=== PATIENT | male | born 1945 | race Caucasian/White ===

== ENCOUNTER 2018-09-06 06:08 | Inpatient (IN) ==
--- NOTE | 2018-09-06 06:48 | ED ---
HPI General Chief Complaint: Weakness Stated Complaint: numbness rt arm Time Seen by Provider: 09/06/18 07:08 Source: patient Mode of arrival: ambulatory Limitations: no limitations History of Present Illness HPI Narrative: 73-year-old male presents to the emergency department by private transportation for evaluation of numbness tingling and mild weakness of the right upper extremity. Patient is right-handed. Patient states he went to bed last evening at 11 PM feeling normal with no symptoms and awakened at 5 AM to go to the bathroom and was aware he already had numbness tingling in the. Patient states that he has experienced this before so waited to see if symptoms resolve but because it persisted he decided to come to the emergency room for evaluation. Patient denies headache visual disturbance loss of vision double vision difficulty with speech swallowing has not noticed a facial droop and appearing in a mirror has had no chest pain shortness of breath nausea vomiting palpitations no upper extremity or lower extremity numbness tingling or weakness other than previously mentioned affecting the isolated right upper extremity. No ataxia. Patient denies any neck pain referred neck pain to the right upper extremity no prior history of radiculopathy. Patient is unable to identify exacerbating or alleviating factors. Patient has history of hypertension dyslipidemia and previous TIA's. Patient states original event with TIA versus stroke occurred approximately 5 years ago which at which time he had complete left-sided weakness was transported by EMS to the hospital and while in route received an injection of the medication and by the time he arrived to the emergency department is noting improvement of symptoms and was discharged after hospitalization with no residual. During his hospitalization he was evaluated with a SALVADOR and is felt that he had some small defects in the septum and was placed on Plavix. Patient has been on Plavix for 5 years. Patient states as recently as 1 month ago he had a similar episode as this morning with tingling and weakness and numbness affecting the right upper extremity that resolved spontaneously after 2 hours. Patient thinks his symptoms are slightly improved but is not certain and presents now for further evaluation. Onset (ago): unknown (went to bed at 11pm awakened with symptoms 5 am) Time: 05:00 Last Observed Normal: 06:41 Timing confirmed by: other (patient) Location: Reports right arm History of same: Yes Severity: mild Quality: Reports weak, numb and tingling Relieving factors: none Exacerbating factors: none Context: Reports other (unknown ---during sleep) On Anticoagulants: Yes (plavix) Associated symptoms: Denies confusion, chest pain, cough, diaphoresis, fever/ chills, headaches, loss of appetite, malaise, nausea/vomiting, vertigo, seizures , shortness of breath, syncope and weakness Treatments Prior to Arrival: Reports none Related Data Home Medications Medication Instructions Recorded Confirmed clopidogrel [Plavix] 75 mg PO DAILY 09/06/18 09/06/18 lisinopril 5 mg PO DAILY 09/06/18 09/06/18 simvastatin [Zocor] 20 mg PO QPM 09/06/18 09/06/18 Allergies Allergy/AdvReac Type Severity Reaction Status Date / Time meperidine AdvReac Intermediate Nauseous Verified 09/06/18 06:24 Review of Systems ROS: all other systems reviewed are negative [facility] Medical History Medical History History of TIAs (Acute) History of high cholesterol (Acute) History of hypertension (Acute) Social History Social History Substance History: No History of Abuse Smoking Status: Former smoker How Often Do You Have a Drink Containing Alcohol: Monthly or less Recent Travel in [facility] within the Last 8 Weeks: No Recent Out of Country Travel within the Last 8 Weeks: No Immunization History Tetanus Immunization: Unsure Exam Narrative Exam Narrative: GENERAL: Well-developed well-nourished male in no acute distress no respiratory distress GCS 15 SKIN: Focused skin assessment warm/dry. HEAD: Atraumatic. Normocephalic. EYES: Pupils equal and round. No scleral icterus. No injection or drainage. ENT: No nasal bleeding or discharge. Mucous membranes pink and moist. NECK: Trachea midline. No JVD. CARDIOVASCULAR: Regular rate and rhythm. No murmur appreciated. RESPIRATORY: No accessory muscle use. Clear to auscultation. Breath sounds equal bilaterally. GASTROINTESTINAL: Abdomen soft, non-tender, nondistended. Hepatic and splenic margins not palpable. MUSCULOSKELETAL: No obvious deformities. No clubbing. No cyanosis. No edema. NEUROLOGICAL: Awake and alert. No obvious cranial nerve deficits. Motor grossly within normal limits. Normal speech. PSYCHIATRIC: Appropriate mood and affect; insight and judgment normal. Course Consultations Consultation #1: dr staton agrees to aspirin and admit for further workup Consultation #2: dr cho agrees to admit Initial Documented Vital Signs Temperature 97.9 F 09/06/18 06:13 Pulse Rate 69 09/06/18 06:13 Respiratory Rate 18 09/06/18 06:13 Blood Pressure 135/66 09/06/18 06:13 Pulse Oximetry 98 09/06/18 06:13 Last Documented Vital Signs Temperature 97.9 F 09/06/18 06:13 Pulse Rate 82 09/06/18 06:39 Respiratory Rate 16 09/06/18 06:39 Blood Pressure 144/75 H 09/06/18 06:39 Pulse Oximetry 99 09/06/18 06:39 Sign Out Sign Out Data: Patient Sign Out occurred on 09/06/18 at 07:27. Patient's care was discussed, and care was transferred from Corinna Valladares MD to Isi Medeiros MD. Sign Out Comment: 73-year-old male here for evaluation of possible TIA CT labs pending may require MRI before disposition; currently on Plavix; NIH SS 0; care signed over to Dr. Medeiros Last updated by Corinna Valladares MD at 09/06/18 07:09 Post-Handoff Eval: Signed over to me to follow labs and CT and reevaluate. CT brain is normal. Patient states he feels like he is still weak in his right hand and having numbness. With history of TIA he will need to be admitted for further workup. He will be given aspirin after discussion with neurologist. Patient agrees to this plan of care NIH Stroke Scale NIH Stroke Scale Level of Consciousness: 0-Alert Orientation Questions: 0-Answers both correct Responds to Commands: 0-Both tasks correct Gaze Eye Movement: 0-Horizontal movement WNL Visual Hung: 0-No visual field defect Facial Movement: 0-Normal Motor Functions Arm LEFT: 0-No drift Motor Functions Arm RIGHT: 0-No drift Motor Functions Leg LEFT: 0-No drift Motor Functions Leg RIGHT: 0-No drift Limb Ataxia: 0-No ataxia Sensory Loss: 0-No sensory loss Best Language: 0-Normal Articulation: 0-Normal Extinction or Inattention Sensory: 0-Absent Total: 0 Medical Decision Making MDM Narrative Medical decision making narrative: 73-year-old male presents to the emergency department for complaint of mild numbness and tingling and weakness of the right upper extremity noted present upon awakening at 5 AM persistent presents now for evaluation; neurologic exam normal NIH stroke score 0. CT brain noncontrast ordered along with EKG salvage grinder lab work Medical Screen Exam Complete: Yes Emergency Medical Condition: Yes Differential Diagnosis Differential Diagnosis: TIA, CVA, cervical radiculopathy, brachioplexopathy, radial nerve palsy; no findings for limb ischemia Medical Records Medical records reviewed: Yes I reviewed the patient's medical records. Lab Data Result diagrams: 09/06/18 06:25 09/06/18 06:25 Lab Results 09/06/18 09/06/18 09/06/18 Range/Units 06:25 06:25 06:25 CBC w Diff Auto diff final WBC 4.6 (4.0-11.0) th/mm3 RBC 5.26 (4.50-5.90) mil/mm3 Hgb 16.4 (13.0-17.0) gm/dL Hct 50.3 (39.0-51.0) % MCV 95.5 (80.0-100.0) fL MCH 31.2 (27.0-34.0) pg MCHC 32.7 (32.0-36.0) % RDW 12.1 (11.6-17.2) % Plt Count 173 (150-450) th/mm3 MPV 9.4 (7.0-11.0) fL Neut % (Auto) 57.2 (16.0-70.0) % Lymph % (Auto) 26.3 (9.0-44.0) % Whitman % (Auto) 13.2 H (0.0-8.0) % Eos % (Auto) 2.7 (0.0-4.0) % Baso % (Auto) 0.6 (0.0-2.0) % Neut # (Auto) 2.7 (1.8-7.7) th/mm3 Lymph # (Auto) 1.2 (1.0-4.8) th/mm3 Whitman # (Auto) 0.6 (0.0-0.9) th/mm3 Eos # (Auto) 0.1 (0.0-0.4) th/mm3 Baso # (Auto) 0.0 (0.0-0.2) th/mm3 WBC Differential . Differential Comment . PT 10.5 (9.8-11.6) sec INR 1.0 Ratio APTT 26.8 (23.4-31.7) sec Sodium 142 (136-145) meq/L Potassium 3.6 (3.5-5.1) meq/L Chloride 108 H (98-107) meq/L Carbon Dioxide 25.9 (21.0-32.0) meq/L Anion Gap 8 (5-15) meq/L BUN 25 H (7-18) mg/dL Creatinine 1.20 (0.60-1.30) mg/dL Estimated GFR 60 L (>89) mL/min Random Glucose 98 (74-106) mg/dL Calcium 8.3 L (8.5-10.1) mg/dL Troponin I Less than 0.02 L (0.02-0.05) ng/mL Imaging Data Radiologist's impression: Head CT 09/06/18 06:38 CONCLUSION: Negative for acute process.. Discharge Plan Discharge Disposition Patient Disposition: 30 Still Patient Discharge Details Diagnosis: Right arm weakness, Numbness and tingling of right arm Physicians Team ED Provider: Isi Medeiros Primary Care Provider: Primary Care Albina Hinojosa Rxs /Orders / Referrals /Forms Prescriptions: No Action clopidogrel [Plavix] 75 mg Tablet 75 mg PO DAILY RF: 0 simvastatin [Zocor] 20 mg Tablet 20 mg PO QPM RF: 0 lisinopril 5 mg Tablet 5 mg PO DAILY RF: 0 Discharge Interventions Interventions: Vital Signs Last Done: 09/06/18 06:39 Status ED Status: Admitted Observation Patient
[2018-09-06 06:50] LABS: Baso % (Auto) 0.6 % (0.0-2.0); Eos # (Auto) 0.1 th/mm3 (0.0-0.4); Eos % (Auto) 2.7 % (0.0-4.0); Hematocrit 50.3 % (39.0-51.0); Hemoglobin 16.4 gm/dL (13.0-17.0); Lymph # (Auto) 1.2 th/mm3 (1.0-4.8); Lymph % (Auto) 26.3 % (9.0-44.0); Mean Corpuscular HGB Conc 32.7 % (32.0-36.0); Mean Corpuscular Hemoglobin 31.2 pg (27.0-34.0); Mean Corpuscular Volume 95.5 fL (80.0-100.0); Mean Platelet Volume 9.4 fL (7.0-11.0); Mono # (Auto) 0.6 th/mm3 (0.0-0.9); Mono % (Auto) 13.2 % (0.0-8.0); Neut # (Auto) 2.7 th/mm3 (1.8-7.7); Neut % (Auto) 57.2 % (16.0-70.0); Platelet Count 173 th/mm3 (150-450); Red Blood Count 5.26 mil/mm3 (4.50-5.90); Red Cell Distribution Width 12.1 % (11.6-17.2); White Blood Count 4.6 th/mm3 (4.0-11.0)
[2018-09-06 07:16] LABS: Chloride 108 meq/L (98-107); Potassium 3.6 meq/L (3.5-5.1); Sodium 142 meq/L (136-145)
[2018-09-06 07:18] LABS: Anion Gap 8 meq/L (5-15); Calcium 8.3 mg/dL (8.5-10.1); Carbon Dioxide 25.9 meq/L (21.0-32.0); Glucose,Random 98 mg/dL (74-106)
[2018-09-06 07:19] LABS: Blood Urea Nitrogen 25 mg/dL (7-18)
[2018-09-06 07:22] LABS: Glomerular Filtration Rate 60 mL/min (>89)
[2018-09-06 07:29] LABS: Activated Partial Thrombo Time 26.8 sec (23.4-31.7); Prothrombin Time 10.5 sec (9.8-11.6)
--- NOTE | 2018-09-06 07:40 | CT ---
EXAM DATE: 09/06/2018 7:00 AM EDT AGE/SEX: 73 years / Male INDICATIONS: Numbness in right arm. CLINICAL DATA: This is the patient's initial encounter. Patient reports that signs and symptoms have been present for 1 day and indicates a pain score of 0/10. MEDICAL/SURGICAL HISTORY: . High cholesterol. Hypertension. Transient ischemic attacks. . RADIATION DOSE: 55.72 CTDI (mGy) COMPARISON: . TECHNIQUE: CT of the head without contrast. Using automated exposure control and adjustment of the mA and/or kV according to patient size, radiation dose was kept as low as reasonably achievable to ob tain optimal diagnostic quality images. DICOM format image data is available electronically for revi ew and comparison. FINDINGS: Cerebrum: The ventricles are normal for age. No evidence of midline shift, mass lesion, hemorrhage or acute infarction. No extraaxial fluid collections are seen. Posterior Fossa: The cerebellum and brainstem are intact. The 4th ventricle is midline. The cerebe llopontine angle is unremarkable. Moderate vertebral artery calcifications Extracranial: The visualized portion of the orbits is intact. Skull: The calvaria is intact. No evidence of skull fracture. CONCLUSION: Negative for acute process.. Electronically signed by: Huy Bullock MD 09/06/2018 7:39 AM EDT
[2018-09-06] MEDS ORDERED: Aspirin 325 MG Tablet PO ONE (07:54)
[2018-09-06] MEDS ORDERED: Dextrose 50% in Water 50 ML Vial IV.PUSH PRN (08:14)
[2018-09-06] MEDS ORDERED: Acetaminophen 325 MG Tablet PO PRN (08:18)
[2018-09-06] MEDS ORDERED: Bisacodyl 10 MG Supp RECTAL PRN (08:18)
[2018-09-06] MEDS: Sod Chloride 0.9% Inj 1,000 ML IV.CONT SCH (08:57)
[2018-09-06] MEDS ORDERED: Aspirin 325 MG Tablet PO SCH (09:00)
--- NOTE | 2018-09-06 09:45 | MR ---
EXAM DATE: 09/06/2018 9:40 AM EDT AGE/SEX: 73 years / Male INDICATIONS: . Right upper extremity numbness. CLINICAL DATA: This is the patient's initial encounter. Patient reports that signs and symptoms have been present for 1 day and indicates a pain score of 0/10. MEDICAL/SURGICAL HISTORY: Hypertension. Hypercholesterolemia. Inguinal hernia repair. Bilatera l knee. COMPARISON: [facility], MR HEAD W/O CONTRAST, 09/06/2018. . TECHNIQUE: 3D [id number] MRA was performed. Source images, multiplanar STS MIP, and 3D volum e MIP reconstructions were reviewed. FINDINGS: Anterior Circulation: Intracranial Carotid Arteries: Patent. JERROD: There is no evidence for aneurysm, vessel truncation or stenosis, and no evidence for vascular m alformation. MCA: There is no evidence for aneurysm, vessel truncation or stenosis, and no evidence for vascular m alformation. Posterior Circulation: Distal Vertebral Arteries: Distal Vertebral arteries are symetrical and patent. Basilar Artery: There is no evidence for aneurysm, vessel truncation or stenosis, and no evidence for vascular malformation. LEGISLATIVE ASSISTANT and Cerebellar Branches: There is no evidence for aneurysm, vessel truncation or stenosis, and no evidence for vascular malformation. CONCLUSION: 1. Unremarkable MRA examination of the [place]. Specifically, no evidence for large vessel occlusion. Electronically signed by: Irwin Romeo MD 09/06/2018 9:43 AM EDT
--- NOTE | 2018-09-06 09:53 | MR ---
EXAM DATE: 09/06/2018 9:40 AM EDT AGE/SEX: 73 years / Male INDICATIONS: . Right upper extremity numbness. CLINICAL DATA: This is the patient's initial encounter. Patient reports that signs and symptoms have been present for 1 day and indicates a pain score of 0/10. MEDICAL/SURGICAL HISTORY: Hypertension. Hypercholesterolemia. Inguinal hernia repair. Bilatera l knee. COMPARISON: [facility], MRA HEAD W/O CONTRAST, 09/06/2018. . TECHNIQUE: Multiplanar, multisequence examination of the brain was performed without contrast. FINDINGS: Cerebrum: The ventricles are normal for age. No evidence of midline shift, mass lesion, hemorrhage or acute infarction. No extraaxial fluid collections are seen. The pituitary gland and suprasellar cistern are normal in configuration. White Matter: Mild periventricular and deep focal T2 white matter prolongation. Posterior Fossa: The cerebellum and brainstem are intact. The 4th ventricle is midline. The cerebel lopontine angle is unremarkable. The cerebellar tonsils are normal in position. Diffusion Imaging: There are scattered regions of focal restricted diffusion in the left frontal lob e mid to high convexities with the largest region near the vertex.. Extracranial: The visualized portions of the orbits and paranasal sinuses are unremarkable. CONCLUSION: 1. 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 2. Senescent changes with mild periventricular ischemic white matter demyelination. Electronically signed by: Irwin Romeo MD 09/06/2018 9:51 AM EDT
[2018-09-06] MEDS: Senna/Docusate Sodium 8.6/50 MG Tablet PO SCH ×2 (10:28→20:44)
[2018-09-06 12:37] LABS: Magnesium 2.2 mg/dL (1.5-2.5)
--- NOTE | 2018-09-06 12:51 | MB ---
cc: Roula Mathew MD DATE: 09/06/2018 REASON FOR CONSULTATION: Possible stroke. HISTORY OF PRESENT ILLNESS: This is a pleasant 73-year-old man who comes in by his own vehicle with numbness, tingling on the right side, mostly upper extremity with mild weakness. He went to bed at 11:00 last night normal and woke up about 5 a.m. to go to the bathroom and his symptoms started, so really time of onset is not known; could be anywhere from 11 p.m. to 5 a.m. and he was not called a stroke alert nor TPA offered. He had symptoms like this for a number of years ago when he was in [place]; whether it was a true stroke or TIA, I think it was a stroke the way he explains that there were abnormalities on MRI. He had an extensive evaluation; neurology as well as cardiology and had what he describes as a transesophageal echo that showed some abnormalities. He states there were some bubbles thinking a PFO. However, because of the size, it was not repaired he tells me and they decided to put him on Plavix. He has been taking the Plavix and has had no issues, but about a month ago, he had similar symptoms and that resolved after 2 hours, but he did go not to the hospital. I believe he states he was out of town. He denies currently significant weakness, but still feels numbness below the elbow to his hands on the right. He states his handwriting or signing is almost back to normal. No leg issues. No speech issues. No headache, chest pain or shortness of breath. He has a history of hyperlipidemia, hypertension, TIA. SOCIAL HISTORY: Ex-smoker. Drinks rarely. No drugs. HOME MEDICINES: He states he takes Plavix; refer to his MAR. PHYSICAL EXAMINATION: VITAL SIGNS: Temperature 97.9, pulse 64, respiratory rate 16, blood pressure 117/69, saturating at 99% on room air. NECK: Supple. I do not appreciate any bruits. HEART: Regular. NEUROLOGIC: She is awake and alert. He is fluent. His pupils reactive. Visual chopra are full. Face symmetrical. Tongue midline. 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 He does have a little bit of decreased light touch from mid arm down to the fingers on the right. There is no obvious drift, no leg lag. DTRs are 1+. Cerebellar, as stated before, is normal. He is not clumsy on the right side. in the legs are normal. His gait is withheld until assessed by PT. LABORATORY DATA: His labs are reviewed. His GFR greater than 60, calcium 8.3. Hemoglobin A1c and lipids are pending. Coag panel was normal. CBC is really unremarkable. IMAGIN. Reports [place] MRA was unremarkable for any large vessel occlusion. 2. MRI did show focal regions of acute infarct, left frontal lobe mid to high convexities consistent with what looks like embolic. There is also periventricular white matter disease, age-related changes. DIAGNOSTIC DATA: He also had an EKG. I do not have the official report, but it looks like overall it is a sinus rhythm. 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 Doubt at this point aspirin and/or Plavix would be sufficient, given that he did have a complete stroke and did not resolve; MRI findings suggesting an embolic phenomenon. Would recommend starting the patient on anticoagulation. If he does not wish warfarin, an option would be Eliquis 5 mg b.i.d. I would also have cardiology see him; either they can evaluate him initially and the patient may be repeat a transesophageal echo or do a bubble study. We do not have the reports from 5 years ago from [place] in any case, at this time. Have PT, OT, and speech therapy assess him; start him on a diet; accordingly, lipids and hemoglobin A1c levels are pending and if he is doing well and cannot and can take his anticoagulation, certainly, he can be discharged home with followup with neurology as outpatient as well as with his primary care doctor. MD SAKINA Doss/db/justin , 11:21 AM , 11:31 AM
--- NOTE | 2018-09-06 13:11 | P.HP ---
History of Present Illness Primary Care Physician: No Primary Care Physician Chief Complaint: Right upper extremity numbness and weakness History of Present Illness: This is a 73-year-old male with a history of hypertension, hyperlipidemia and previous TIAs. 5 years ago he had left-sided weakness and underwent SALVADOR which showed small defect in the septum and was placed on Plavix. He has been doing well until early this morning when he felt numb and tingling in the right forearm with weakness. Symptoms persisted prompting ER consultation. Denies fever, chills, headache, dizziness, visual changes, slurred speech, neck pain, chest pain and shortness of breath. Patient reports he had similar episode a month ago that lasted for 2 hours with complete resolution. Patient was given aspirin in the emergency room and underwent MRI which showed acute infarction in the left frontal lobe mid to high convexities most consistent with embolic infarcts. Discussed with neurology, patient will start Eliquis which patient agrees. Antiplatelets will be discontinued. SALVADOR with bubble study was also recommended and will be performed later today by cardiology. All other systems reviewed negative Review of Systems All other systems reviewed negative except as stated in HPI PMFSH - History History Provided By: Patient - Medical History Medical History: Medical History (Last Reviewed 09/06/18 @ 13:50 by Dionicio Geller MD) History of TIAs History of high cholesterol History of hypertension - Surgical History Surgical History: Surgical History (Last Updated 09/06/18 @ 13:51 by Dionicio Geller MD) History of arthroscopic knee surgery S/P hernia surgery - Family History Family History: Family History (Last Updated 09/06/18 @ 13:52 by Dionicio Geller MD) Other CVA (cerebral vascular accident) - Social History I have reviewed the patient's Social History: Yes - Tobacco History Second Hand Smoke Exposure: No Smoking Status: Never smoker - Alcohol History How Often Do You Have a Drink Containing Alcohol: Never - Substance Use History Substance History: No History of Abuse - Travel History Recent Travel in the [place] Within the Last 8 Weeks: No Recent Travel Out of the Country Within the Last 8 Weeks: No - Immunization History Tetanus Immunization: Unsure Medications and Allergies Active Medications: Active Medications Acetaminophen (Tylenol) 650 mg PO Q4H PRN PRN Reason: Temp > 100.4 Al Hydroxide/Mg Hydroxide (Milk Of Magnesia Liq) 30 ml PO Q12H PRN PRN Reason: Mild Constipation Apixaban (Eliquis) 5 mg PO BID [facility] Bisacodyl (Dulcolax Supp) 10 mg RECTAL DAILY PRN PRN Reason: SEVERE CONSITIPATION Dextrose (D50w Vial) 50 ml IV.PUSH UNSCH PRN PRN Reason: PER HYPOGLYCEMIA PROTOCOL Enalaprilat (Vasotec Inj) 1.25 mg IV.PUSH Q4H PRN PRN Reason: For SBP > 220 or DBP > 120 Glucagon (Glucagon Inj) 1 mg OTHER UNSCH PRN PRN Reason: for Hypoglycemia Protocol Sodium Chloride (Ns Inj) 1,000 mls @ 70 mls/hr IV.CONT .[id number] [facility] Last Admin: 09/06/18 08:57 Dose: 70 mls/hr Insulin Aspart (Novolog Insulin Correctional Sugar Inj) 0 unit SQ ACHS [facility]; Protocol Lactulose (Lactulose Liq) 30 ml PO DAILY PRN PRN Reason: SEVERE CONSITIPATION Ondansetron HCl (Zofran Inj) 4 mg IV.PUSH Q6H PRN PRN Reason: NAUSEA OR VOMITING Pravastatin Sodium (Pravachol) 40 mg PO QPM [facility] Senna/Docusate Sodium (Lizy-Colace) 1 tab PO BID [facility] Last Admin: 09/06/18 10:28 Dose: Not Given Sennosides (Senokot) 17.2 mg PO Q12H PRN PRN Reason: Moderate Constipation Sodium Chloride (Ns Flush) 2 ml IV.FLUSH BID [facility] Last Admin: 09/06/18 10:29 Dose: 2 ml Sodium Chloride (Ns Flush) 2 ml IV.FLUSH PRN PRN PRN Reason: FLUSH AFTER USING IV ACCESS Allergies Allergy/AdvReac Type Severity Reaction Status Date / Time meperidine AdvReac Intermediate Nauseous Verified 09/06/18 06:24 Home Medications Medication Instructions Recorded Confirmed Type clopidogrel [Plavix] 75 mg PO DAILY 09/06/18 09/06/18 History lisinopril 5 mg PO DAILY 09/06/18 09/06/18 History simvastatin [Zocor] 20 mg PO QPM 09/06/18 09/06/18 History Exam Vital signs: Vital Signs 09/06/18 06:13 09/06/18 06:39 09/06/18 07:15 Temperature 97.9 F Pulse Rate 69 82 64 Respiratory Rate 18 16 Blood Pressure 135/66 144/75 H Pulse Oximetry 98 99 09/06/18 08:21 Temperature Pulse Rate 64 Respiratory Rate 16 Blood Pressure 117/69 Pulse Oximetry 99 Intake & Output 09/05/18 09/06/18 09/06/18 18:59 06:59 18:59 Weight 80.2 kg Narrative: GENERAL: Well-developed, well-nourished in no distress SKIN: Warm and dry. HEAD: Atraumatic. Normocephalic. EYES: Pupils equal and round. No scleral icterus. No injection or drainage. ENT: No nasal bleeding or discharge. Mucous membranes pink and moist. NECK: Trachea midline. No JVD. CARDIOVASCULAR: Regular rate and rhythm. RESPIRATORY: No accessory muscle use. Clear to auscultation. Breath sounds equal bilaterally. GASTROINTESTINAL: Abdomen soft, non-tender, nondistended. MUSCULOSKELETAL: Extremities without clubbing, cyanosis, or edema. No obvious deformities. NEUROLOGICAL: Awake and alert. No obvious cranial nerve deficits. Motor grossly within normal limits. Five out of 5 muscle strength in the arms and legs. Normal speech. PSYCHIATRIC: Appropriate mood and affect; insight and judgment normal. Results - Labs CBC & Chem 7: 09/06/18 06:25 09/06/18 06:25 Labs: Laboratory Results - last 24 hr 09/06/18 09/06/18 09/06/18 06:25 06:25 06:25 CBC w Diff Auto diff final WBC 4.6 RBC 5.26 Hgb 16.4 Hct 50.3 MCV 95.5 MCH 31.2 MCHC 32.7 RDW 12.1 Plt Count 173 MPV 9.4 Neut % (Auto) 57.2 Lymph % (Auto) 26.3 [place] % (Auto) 13.2 H Eos % (Auto) 2.7 Baso % (Auto) 0.6 Neut # (Auto) 2.7 Lymph # (Auto) 1.2 [place] # (Auto) 0.6 Eos # (Auto) 0.1 Baso # (Auto) 0.0 WBC Differential . Differential Comment . PT 10.5 INR 1.0 APTT 26.8 Sodium 142 Potassium 3.6 Chloride 108 H Carbon Dioxide 25.9 Anion Gap 8 BUN 25 H Creatinine 1.20 Estimated GFR 60 L POC Glucose Random Glucose 98 Calcium 8.3 L Magnesium 2.2 Troponin I Less than 0.02 L 09/06/18 11:19 CBC w Diff WBC RBC Hgb Hct MCV MCH MCHC RDW Plt Count MPV Neut % (Auto) Lymph % (Auto) [place] % (Auto) Eos % (Auto) Baso % (Auto) Neut # (Auto) Lymph # (Auto) [place] # (Auto) Eos # (Auto) Baso # (Auto) WBC Differential Differential Comment PT INR APTT Sodium Potassium Chloride Carbon Dioxide Anion Gap BUN Creatinine Estimated GFR POC Glucose 82 Random Glucose Calcium Magnesium Troponin I - Imaging Impressions Head CT 09/06/18 06:38 CONCLUSION: Negative for acute process.. Head MRI 09/06/18 08:17 CONCLUSION: 1. Focal regions of acute infarction in the left frontal lobe mid to high convexities in a manner most consistent with embolic infarcts. 2. Senescent changes with mild periventricular ischemic white matter demyelination. Head MRA 09/06/18 08:17 CONCLUSION: 1. Unremarkable MRA examination of the [place] of [place]. Specifically, no evidence for large vessel occlusion. Caprini VTE Risk Assessment Caprini VTE Risk Assessment: Moderate/High Risk (score >= 2) Caprini Risk Assessment Model: Point Value = 1 Point Value = 2 Point Value = 3 Point Value = 5 Age 41-60 Minor surgery BMI > 25 kg/m2 Swollen legs Varicose veins or History of unexplained or recurrent spontaneous Oral contraceptives or hormone replacement Sepsis (< 1 month) Serious lung disease, including pneumonia (< 1 month) Abnormal pulmonary function Acute myocardial infarction Congestive heart failure (< 1 month) History of inflammatory bowel disease Medical patient at bed rest Age 61-74 Arthroscopic surgery Major open surgery (> 45 min) Laparoscopic surgery (> 45 min) Malignancy Confined to bed (> 72 hours) Immobilizing plaster cast Central venous access Age >= 75 History of VTE Family history of VTE Factor V Leiden Prothrombin [id number] Lupus anticoagulant Anticardiolipin antibodies Elevated serum homocysteine Heparin-induced thrombocytopenia Other congenital or acquired thrombophilia Stroke (< 1 month) Elective arthroplasty Hip, pelvis, or leg fracture Acute spinal cord injury (< 1 month) Prophylaxis Regimen: Total Risk Factor Score Risk Level Prophylaxis Regimen 0-1 Low Early ambulation 2 Moderate Order ONE of the following: *Sequential Compression Device (SCD) *Heparin 5000 units SQ BID 3-4 Higher Order ONE of the following medications: *Heparin 5000 units SQ TID *Enoxaparin/Lovenox 40 mg SQ daily (WT < 150 kg, CrCl > 30 mL/min) *Enoxaparin/Lovenox 30 mg SQ daily (WT < 150 kg, CrCl > 10-29 mL/min) *Enoxaparin/Lovenox 30 mg SQ BID (WT < 150 kg, CrCl > 30 mL/min) AND/OR *Sequential Compression Device (SCD) 5 or more Highest Order ONE of the following medications: *Heparin 5000 units SQ TID (Preferred with Epidurals) *Enoxaparin/Lovenox 40 mg SQ daily (WT < 150 kg, CrCl > 30 mL/min) *Enoxaparin/Lovenox 30 mg SQ daily (WT < 150 kg, CrCl > 10-29 mL/min) *Enoxaparin/Lovenox 30 mg SQ BID (WT < 150 kg, CrCl > 30 mL/min) AND *Sequential Compression Device (SCD) Assessment and Plan - Plan This is a 73-year-old male with a history of hypertension, hyperlipidemia and previous TIAs on Plavix. Presented to the emergency department with acute right upper extremity numbness and weakness. EKG independently reviewed by me with sinus rhythm. 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 Stroke workup and continue Eliquis discontinue antiplatelets. Patient will be transferred to the main hospital today for SALVADOR. Risk factor modification obtain lipid profile and A1c. Consult neurology, cardiology, PT, ST and OT. Discharge Planning: Discharge per neurology and cardiology
--- NOTE | 2018-09-06 13:30 | ECHRPT ---
Indication: CVA/TIA CONCLUSIONS The left ventricular systolic function is normal with an estimated ejection fraction in the range of 60-65%. Trace mitral valve regurgitation. There is trace tricuspid valve regurgitation. BP: 121 / 68 HR: Rhythm: MEASUREMENTS (Male / Female) Normal Values Technical Quality:Good 2D ECHO LV Diastolic Diameter PLAX 4.7 cm 4.2 - 5.9 / 3.9 - 5.3 cm LV Systolic Diameter PLAX 2.4 cm IVS Diastolic Thickness 1.1 cm 0.6 - 1.0 / 0.6 - 0.9 cm LVPW Diastolic Thickness 1.1 cm 0.6 - 1.0 / 0.6 - 0.9 cm LV Relative Wall Thickness 0.5 RV Internal Dim ED PLAX 3.6 cm LVOT Diameter 2.4 cm Aortic Root Diameter 3.0 cm LA Systolic Diameter LX 3.6 cm 3.0 - 4.0 / 2.7 - 3.8 cm DOPPLER AV Peak Velocity 147.0 cm/s AV Peak Gradient 8.6 mmHg LVOT Peak Velocity 106.0 cm/s LVOT Peak Gradient 4.5 mmHg AV Area Cont Eq pk 3.3 cm Mitral E Point Velocity 74.5 cm/s Mitral A Point Velocity 60.7 cm/s Mitral E to A Ratio 1.2 LV E' Lateral Velocity 11.1 cm/s Mitral E to LV E' Lateral Ratio 6.7 LV E' Septal Velocity 8.6 cm/s Mitral E to LV E' Septal Ratio 8.7 TR Peak Velocity 280.0 cm/s TR Peak Gradient 31.4 mmHg Right Atrial Pressure 10.0 mmHg Pulmonary Artery Systolic Pressu 41.4 mmHg Right Ventricular Systolic Press 41.4 mmHg PV Peak Velocity 95.0 cm/s PV Peak Gradient 3.6 mmHg FINDINGS LEFT VENTRICLE Normal left ventricular size. Wall thickness is normal. The left ventricular systolic function is normal with an estimated ejection fraction in the range of 60-65%. RIGHT VENTRICLE Normal right ventricular size and systolic function. LEFT ATRIUM The left atrial size is normal. RIGHT ATRIUM The right atrial size is normal. ATRIAL SEPTUM Normal atrial septal thickness without atrial level shunting by limited color doppler interrogation. AORTA The aortic root and proximal ascending aorta are normal in size on limited imaging. MITRAL VALVE Structurally normal mitral valve. No mitral valve stenosis. Trace mitral valve regurgitation. AORTIC VALVE Trileaflet aortic valve. No aortic valve stenosis or regurgitation. Aortic valve sclerosis is present. TRICUSPID VALVE Structurally normal tricuspid valve. No tricuspid valve stenosis. There is trace tricuspid valve regurgitation. The estimated pulmonary arterial pressure is 41 mmHg. PULMONARY VALVE No pulmonary valve regurgitation or stenosis. VESSELS The inferior vena cava is normal in size. PERICARDIUM No pericardial effusion. Hussain Olivo DO (Electronically Signed) Final Date:06 September 2018 13:30
[2018-09-06] MEDS: Insulin NovoLOG Aspart Correctional Sugar Inj SQ SCH ×2 (13:31→20:56)
[2018-09-06 14:09] LABS: Chol/HDL Ratio 2.64 Ratio
[2018-09-06 14:18] LABS: Hemoglobin A1c 5.1 % (4.3-6.0)
--- NOTE | 2018-09-06 14:20 | US ---
EXAM DATE: 09/06/2018 2:11 PM EDT AGE/SEX: 73 years / Male INDICATIONS: Cerebrovascular accident. CLINICAL DATA: This is the patient's initial encounter. Patient reports that signs and symptoms have been present for 1 day and indicates a pain score of 0/10. MEDICAL/SURGICAL HISTORY: Hypercholesterolemia. Hypertension. Transient ischemic attack. None . COMPARISON: No prior exams available for comparison. VELOCITY PARAMETERS: ICA/CCA Ratio: Right 0.8 , Left 1.1 ICA: Right 65 cm/sec, Left 83 cm/sec CCA: Right 79 cm/sec, Left 73 cm/sec ECA: Right 73 cm/sec, Left 64 cm/sec Vertebral: Right 45 cm/sec antegrade, Left 51 cm/sec antegrade FINDINGS: RIGHT CAROTID: There is no evidence for a hemodynamically significant carotid stenosis. Minimal int imal hyperplasia is present with scattered calcific plaque. LEFT CAROTID: There is no evidence for a hemodynamically significant carotid stenosis. Minimal inti mal hyperplasia is present with scattered calcific plaque. Flow is antegrade in both vertebral arteries. There are no ancillary masses or adenopathy. CONCLUSION: Negative examination for a hemodynamically significant carotid stenosis. Huy Bullock MD FACR Electronically signed by: Huy Bullock MD 09/06/2018 2:19 PM EDT
[2018-09-06] MEDS ORDERED: Chlorhexidine Gluconate 2% 1 Pack (2 Cloths) TOPICAL ONE (15:08)
[2018-09-06] MEDS ORDERED: Metoprolol Tartrate 25 MG Tablet PO PRN (15:08)
[2018-09-06] MEDS ORDERED: Chlorhexidine Gluconate 2% 1 Pack (2 Cloths) TOPICAL SCH (15:45)
[2018-09-06] MEDS ORDERED: Mupirocin 2% Nasal Oint Topical Syringe EACH NARE SCH (15:45)
[2018-09-06] MEDS ORDERED: Sod Chloride 0.9% Inj 1,000 ML IV.CONT SCH (15:45)
[2018-09-06] MEDS ORDERED: Vancomycin Inj 1,000 MG in Sodium Chlor 0.9% Inj 250 ML IV.SIG SCH (16:00)
[2018-09-06] MEDS ORDERED: ceFAZolin 2 GM Premix Inj 2 GM/50 ML PIGGYBACK IV.SIG SCH (16:00)
[2018-09-06] MEDS ORDERED: Sodium Chlor 0.9% Inj 500 ML IV.SIG SCH (16:00)
--- NOTE | 2018-09-06 18:27 | ECHRPT ---
Indication: CVA/TIA CONCLUSIONS The left ventricular systolic function is normal with an estimated ejection fraction in the range of 55-60%. Normal left atrial appendage size with no evidence of thrombus formation. No atrial level shunt is demonstrated by color flow Doppler or agitated saline imaging. Trace mitral valve regurgitation. BP: / HR: Rhythm: Sinus Technical Quality:Good Medications Complications Proc. Components Anesthesia at the bedside for sedation. FINDINGS LEFT VENTRICLE Normal left ventricular size. Wall thickness is normal. The left ventricular systolic function is normal with an estimated ejection fraction in the range of 55-60%. No regional wall motion abnormalities are present. RIGHT VENTRICLE Normal right ventricular size and systolic function. LEFT ATRIUM The left atrial size is upper limits of normal. RIGHT ATRIUM The right atrial size is normal. ATRIAL APPENDAGES Normal left atrial appendage size with no evidence of thrombus formation. Velocities are normal at the ostium. ATRIAL SEPTUM Normal atrial septal thickness No atrial level shunt is demonstrated by color flow Doppler or agitated saline imaging. AORTA The aortic root and proximal ascending aorta are normal in size on limited imaging. MITRAL VALVE Structurally normal mitral valve. Trace mitral valve regurgitation. No mitral valve stenosis. AORTIC VALVE Trileaflet aortic valve. No aortic valve regurgitation. No aortic valve stenosis. TRICUSPID VALVE Structurally normal tricuspid valve. No tricuspid regurgitation. No tricuspid valve stenosis. VESSELS The pulmonary valve is not well visualized. No pulmonary valve regurgitation. Hussain Olivo DO (Electronically Signed) Final Date:06 September 2018 18:27
--- NOTE | 2018-09-06 18:58 | ECG ---
Date Performed: 09/06/2018 Time Performed: 07:36:41 PTAGE: 73 years EKG: Sinus rhythm BORDERLINE LEFT AXIS DEVIATION BORDERLINE ECG NO PREVIOUS TRACING DOCTOR: Gautam Michelle Interpretating Date/Time 09/06/2018 18:55:33
[2018-09-07] MEDS: Sod Chloride 0.9% Inj 1,000 ML IV.CONT SCH (00:23)
--- NOTE | 2018-09-07 01:14 | MB ---
cc: Hussain Olivo DO DATE: 09/06/2018 REASON FOR CONSULTATION: CVA. HISTORY OF PRESENT ILLNESS: Bradley Coronel is a pleasant 73-year-old male who presented to [facility] Emergency Room due to numbness and tingling in his right arm with weakness. He previously had a CVA with left-sided weakness around 5 years ago. At that time, he was in [place] and underwent a SALVADOR. It is not quite sure what exactly happened, but he was talking about bubbles and crossing over, which sounded like a possible PFO. He was placed on Plavix at that time. He was doing well until the morning of admission when he started having numbness and tingling in his right forearm with weakness. Symptoms persisted, so he went to the emergency room. He states that he had a similar episode around 2 months ago when he was up in the [facility] and they lasted for 2 hours and then stopped. He was seen by neurology and underwent an MRI, which showed an acute infarction in the left frontal lobe. Because of this, neurology asked for me to evaluate the patient for a possible transesophageal echocardiogram. PAST MEDICAL HISTORY: 1. Cerebrovascular accident. 2. Hyperlipidemia. 3. Hypertension. PAST SURGICAL HISTORY: 1. Arthroscopic knee surgery. 2. Hernia surgery. ALLERGIES: MEPERIDINE. MEDICATIONS: 1. Plavix 75 mg daily. 2. Lisinopril 5 mg daily. 3. Zocor 20 mg every night. FAMILY HISTORY: Denies premature coronary artery disease or sudden cardiac within the family. SOCIAL HISTORY: Denies tobacco, alcohol or drug abuse. REVIEW OF SYSTEMS: Fourteen systems were reviewed including osteopathic. Pertinent positives and negatives above, otherwise negative. PHYSICAL EXAMINATION: VITAL SIGNS: Temperature 97.9, heart rate 82, blood pressure 144/75, respirations 18, pulse oximetry 99% on room air. GENERAL: The patient appears well, in no acute distress, alert, awake and oriented x3. HEENT: Extraocular muscles intact. Mucous membranes moist. NECK: Supple. No JVD at 45 degrees. No carotid bruits heard bilaterally. Carotid upstroke is brisk in nature. HEART: Regular rate and rhythm. Positive first and second heart sounds with no noted murmurs, gallops or rubs. LUNGS: Clear to auscultation bilaterally. No wheezes, rales or rhonchi. ABDOMEN: Soft, nontender, nondistended. No organomegaly noted. EXTREMITIES: Show no clubbing, cyanosis or edema. Femoral and distal pulses intact bilaterally. NEUROLOGIC: Right upper extremity weakness with tingling, otherwise no focal deficits. SKIN: Warm, dry and intact. OSTEOPATHIC: No kyphoscoliosis, lordosis or paraspinal tender points. LABORATORY DATA: Hemoglobin 16.4, hematocrit 50.3, platelets 173. Potassium 3.6, BUN 25, creatinine 1.2. Troponin less than 0.02. Electrocardiogram (09/06/2018 0736 hours): Sinus rhythm, borderline left axis deviation. ASSESSMENT: 1. Cerebrovascular accident with what appears to be a previous transient ischemic attack. 2. Possible patent foramen ovale on previous transesophageal echocardiogram. 3. Hyperlipidemia. 4. Hypertension. RECOMMENDATIONS: 1. Mr. Coronel appears to have had a CVA and was evaluated by neurology, who recommended transesophageal echocardiogram. 2. Previous episode around 5 years ago, he underwent a transesophageal echocardiogram and although he is unsure of the exact details, he did mention bubbles crossing over which would possibly mean a PFO. 3. I agree that he should undergo transesophageal echocardiogram. Risks, benefits and alternatives were explained to him and he consented to such. 4. Ultimately, he has little risk factors for having a stroke. If SALVADOR shows no thrombus or spontaneous echo contrast in the left atrium, I believe the next option would be to place a loop recorder for cryptogenic stroke. Risks, benefits and alternatives were explained to the patient and he agrees. 5. Further recommendations will be made based on the hospital course. Thank you for allowing me to see Bradley Coronel. If there are any questions, please do not hesitate to call. DO MYRNA Linder/robert , 12:41 AM , 12:49 AM
--- NOTE | 2018-09-07 02:36 | MR ---
cc: Hussain Olivo DO DATE: 09/06/2018 PROCEDURE: Medtronic Reveal LINQ loop recorder placement (model number LNQ11, serial number [id number]) PREOPERATIVE DIAGNOSIS: Cryptogenic stroke. POSTPROCEDURE DIAGNOSIS: Cryptogenic stroke, status post loop recorder placement. SEDATION: Provided by anesthesia. ESTIMATED BLOOD LOSS: Minimal. PROCEDURAL SUMMARY: Bradley Coronel is a pleasant 73-year-old male who presented to [facility] due to weakness and tingling in his right arm. He has a history of CVA 5 years ago for which he underwent workup and was placed on Plavix. Since that time, he has done relatively well until the episode this morning. He was seen by neurology and recommended consideration of a transesophageal echocardiogram as there was concern for a previous PFO. He underwent transesophageal echocardiogram and during there is no thrombus or spontaneous echo contrast were noted. As he had a cryptogenic stroke and very little risk factors otherwise, I felt like the best option was to place a loop recorder to evaluate his rhythms for possible atrial fibrillation. Risks, benefits and alternatives were explained to him before anesthesia was given for SALVADOR and he consented. Post SALVADOR, he was placed in the supine position. Anterior chest wall was draped in a sterile fashion. Anterior chest wall was then anesthetized with lidocaine. A small incision was placed over the left fourth intercostal. The loop recorder was injected underneath the skin. Pressure was held for hemostasis. The patient tolerated the procedure well. HARDWARE: Medtronic Reveal LINQ (model number LNQ11, serial number [id number]). R-wave 0.31 millivolts. IMPRESSION: 1. Cryptogenic stroke. 2. Status post Medtronic Reveal LINQ loop recorder placement. RECOMMENDATIONS: 1. Mr. Coronel underwent a loop recorder placement for cryptogenic stroke. 2. Transmissions will be sent to my office. 3. He will be watched overnight and, if stable in the morning, discharged home for follow up with me in the office. Thank you for allowing me to see Bradley Coronel. If there are any questions, please do not hesitate to call. DO MYRNA Linder/robert , 01:33 AM , 01:41 AM
[2018-09-07] MEDS: Senna/Docusate Sodium 8.6/50 MG Tablet PO SCH (08:38)
[2018-09-07] MEDS: Insulin NovoLOG Aspart Correctional Sugar Inj SQ SCH ×2 (08:41→09:33)
[2018-09-07] MEDS ORDERED: Influenza (Quadrivalent) Vaccine 0.5 ML Syringe IM ONE (09:00)
--- NOTE | 2018-09-07 09:43 | P.PN ---
Subjective Interval history: Follow up for left embolic stroke, status post loop recorder placement 09/06/2018 : Patient seen and examined, awake, alert oriented x3. Complains of residual dorsum right hand numbness, decrease in dexterity but overall his strength is 5 out of 5. No slurring of the speech. No difficulty ambulating. No headaches, no double vision. No chest pain, shortness of breath, no nausea, no vomiting, no diarrhea. No fever. Telemetry reviewed, sinus rhythm Physical Exam Vital signs: Vital Signs 09/06/18 12:00 09/06/18 20:00 09/07/18 00:00 Temperature 96.9 F L 97.6 F 97.6 F Pulse Rate 66 58 L 65 Respiratory Rate 16 16 16 Blood Pressure 139/66 136/62 127/67 Pulse Oximetry 96 97 95 09/07/18 04:00 09/07/18 08:00 Temperature 97.9 F 98.2 F Pulse Rate 62 64 Respiratory Rate 16 16 Blood Pressure 119/57 L 122/56 L Pulse Oximetry 95 96 Intake & Output 09/06/18 09/07/18 09/07/18 18:59 06:59 18:59 Intake Total 50 / 50 1000 / 1000 Balance 50 / 50 1000 / 1000 Weight 80.2 kg Intake: IV 50 / 50 1000 / 1000 NS Inj 1,000 ML @ 70 mls/hr IV. 1000 / 1000 CONT .[id number] [facility] Rx#: [id number] Ancef 2 GM Premix Inj 2 gm In 50 / 50 50 ml @ 100 mls/hr IV.SIG [employer] [employer] Rx#:[id number] Other: # Voids 2 Weight On Admission 80.2 kg Narrative: GENERAL: Well-developed, well-nourished in no distress SKIN: Warm and dry. HEAD: Atraumatic. Normocephalic. EYES: Pupils equal and round. No scleral icterus. No injection or drainage. ENT: No nasal bleeding or discharge. Mucous membranes pink and moist. NECK: Trachea midline. No JVD. CARDIOVASCULAR: Regular rate and rhythm. CHEST: Left chest wall with dressing dry and intact. RESPIRATORY: No accessory muscle use. Clear to auscultation. Breath sounds equal bilaterally. GASTROINTESTINAL: Abdomen soft, non-tender, nondistended. MUSCULOSKELETAL: Extremities without clubbing, cyanosis, or edema. No obvious deformities. NEUROLOGICAL: Awake and alert. No obvious cranial nerve deficits. Motor grossly within normal limits. Five out of 5 muscle strength in the arms and legs. Normal speech. PSYCHIATRIC: Appropriate mood and affect; insight and judgment normal. Results - Labs CBC & Chem 7: 09/06/18 06:25 09/06/18 06:25 Laboratory Results - last 24 hr 09/06/18 09/06/18 09/06/18 06:25 06:25 06:25 Sodium 142 Potassium 3.6 Chloride 108 H Carbon Dioxide 25.9 Anion Gap 8 BUN 25 H Creatinine 1.20 Estimated GFR 60 L POC Glucose Random Glucose 98 Hemoglobin A1c 5.1 Calcium 8.3 L Magnesium 2.2 Troponin I Less than 0.02 L Triglycerides 44 Cholesterol 119 L LDL Cholesterol, Calc 65 HDL Cholesterol 45.0 Cholesterol/HDL Ratio 2.64 09/06/18 09/06/18 09/06/18 11:19 17:54 20:41 Sodium Potassium Chloride Carbon Dioxide Anion Gap BUN Creatinine Estimated GFR POC Glucose 82 71 133 H Random Glucose Hemoglobin A1c Calcium Magnesium Troponin I Triglycerides Cholesterol LDL Cholesterol, Calc HDL Cholesterol Cholesterol/HDL Ratio - Imaging Impressions Carotid Doppler Study 09/06/18 00:00 CONCLUSION: Negative examination for a hemodynamically significant carotid stenosis. Huy Bullock MD FACR Head MRI 09/06/18 08:17 CONCLUSION: 1. Focal regions of acute infarction in the left frontal lobe mid to high convexities in a manner most consistent with embolic infarcts. 2. Senescent changes with mild periventricular ischemic white matter demyelination. Head MRA 09/06/18 08:17 CONCLUSION: 1. Unremarkable MRA examination of the [place]. Specifically, no evidence for large vessel occlusion. - Procedures Loop recorder 09/06 Assessment and Plan - Assessment (1) Embolic stroke Code(s): I63.9 - Cerebral infarction, unspecified Status: Acute (2) Hyperlipidemia Code(s): E78.5 - Hyperlipidemia, unspecified Status: Chronic (3) Hx of TIA (transient ischemic attack) and stroke Code(s): Z86.73 - Personal history of transient ischemic attack (TIA), and cerebral infarction without residual deficits Status: Chronic (4) Hypertension Code(s): I10 - Essential (primary) hypertension Status: Chronic - Plan 73-year-old male with a history of hypertension, hyperlipidemia and previous TIAs on Plavix. Presented to the emergency department with acute right upper extremity numbness and weakness. MRI which showed acute infarction in the left frontal lobe mid to high convexities most consistent with embolic infarcts. Patient also indicated possible history of PFO in the past during workup at hospital in [place]. Embolic CVA. Residual numbness to right hand dorsum, no other neurological deficits. S/P SALVADOR, no PFO S/P loop recorder placed 09/06 -Continue with neuro checks Continuous cardiac telemetry Head MRA, no significant findings -Status post SALVADOR, no evidence of shunt. -Cardiology has evaluated, input appreciated. Recommended loop recorder for possible cryptogenic stroke. Patient has been started on Eliquis, Plavix was stopped. -Echo done, EF 60-65%. No significant valvular abnormalities Lipid profile as noted, continue with statins -Hemoglobin A1c 5 PT, ST and OT. Hypertension, blood pressure well controlled Continue with beta-bobbi Possible discharge today after cardiology clears Follow-up as outpatient with neurology and cardiology in 2 weeks Heart healthy diet Activity as tolerated Code Status: Full code Discussed Condition With: RN, pt Discharge Planning: DC today after card clears (2) Hyperlipidemia Qualifiers: Hyperlipidemia type: unspecified Qualified Code(s): E78.5 - Hyperlipidemia, unspecified (4) Hypertension Qualifiers: Hypertension type: essential hypertension Qualified Code(s): I10 - Essential (primary) hypertension
--- NOTE | 2018-09-07 17:07 | P.PNCA ---
Subjective Interval history: No events overnight Still with numbness right arm, no weakness Medications and Allergies Allergies Allergy/AdvReac Type Severity Reaction Status Date / Time meperidine AdvReac Intermediate Nauseous Verified 09/06/18 06:24 Home Medications Medication Instructions Recorded Confirmed Type lisinopril 5 mg PO DAILY 09/06/18 09/06/18 History simvastatin [Zocor] 20 mg PO QPM 09/06/18 09/06/18 History Physical Exam Vital signs: Vital Signs 09/06/18 20:00 09/07/18 00:00 09/07/18 04:00 Temperature 97.6 F 97.6 F 97.9 F Pulse Rate 58 L 65 62 Respiratory Rate 16 16 16 Blood Pressure 136/62 127/67 119/57 L Pulse Oximetry 97 95 95 09/07/18 08:00 Temperature 98.2 F Pulse Rate 64 Respiratory Rate 16 Blood Pressure 122/56 L Pulse Oximetry 96 Intake & Output 09/06/18 09/07/18 09/07/18 18:59 06:59 18:59 Intake Total 50 / 50 1000 / 1000 Balance 50 / 50 1000 / 1000 Weight 80.2 kg Intake: IV 50 / 50 1000 / 1000 NS Inj 1,000 ML @ 70 mls/hr IV. 1000 / 1000 CONT .[id number] [facility] Rx#: [id number] Ancef 2 GM Premix Inj 2 gm In 50 / 50 50 ml @ 100 mls/hr IV.SIG [facility] [employer] Rx#:[id number] Other: # Voids 2 Date of Last Bowel Movement 09/06/18 Weight On Admission 80.2 kg Narrative: GENERAL: Well-developed, well-nourished in no distress SKIN: Warm and dry. HEAD: Atraumatic. Normocephalic. EYES: Pupils equal and round. No scleral icterus. No injection or drainage. ENT: No nasal bleeding or discharge. Mucous membranes pink and moist. NECK: Trachea midline. No JVD. CARDIOVASCULAR: Regular rate and rhythm. CHEST: Left chest wall with dressing dry and intact. RESPIRATORY: No accessory muscle use. Clear to auscultation. Breath sounds equal bilaterally. GASTROINTESTINAL: Abdomen soft, non-tender, nondistended. MUSCULOSKELETAL: Extremities without clubbing, cyanosis, or edema. No obvious deformities. NEUROLOGICAL: Awake and alert. No obvious cranial nerve deficits. Motor grossly within normal limits. Five out of 5 muscle strength in the arms and legs. Normal speech. PSYCHIATRIC: Appropriate mood and affect; insight and judgment normal. Results 09/06/18 06:25 09/06/18 06:25 Cardiac Enzymes 09/06/18 Range/Units 06:25 Troponin I Less than 0.02 L (0.02-0.05) ng/mL Coagulation 09/06/18 Range/Units 06:25 PT 10.5 (9.8-11.6) sec APTT 26.8 (23.4-31.7) sec Lipids 09/06/18 Range/Units 06:25 Triglycerides 44 (42-150) mg/dL Cholesterol 119 L (120-200) mg/dL HDL Cholesterol 45.0 (40.0-60.0) mg/dL Cholesterol/HDL Ratio 2.64 Ratio CBC 09/06/18 Range/Units 06:25 WBC 4.6 (4.0-11.0) th/mm3 RBC 5.26 (4.50-5.90) mil/mm3 Hgb 16.4 (13.0-17.0) gm/dL Hct 50.3 (39.0-51.0) % Plt Count 173 (150-450) th/mm3 Neut # (Auto) 2.7 (1.8-7.7) th/mm3 Lymph # (Auto) 1.2 (1.0-4.8) th/mm3 [place] # (Auto) 0.6 (0.0-0.9) th/mm3 Eos # (Auto) 0.1 (0.0-0.4) th/mm3 Baso # (Auto) 0.0 (0.0-0.2) th/mm3 Comprehensive Metabolic Panel 09/06/18 Range/Units 06:25 Sodium 142 (136-145) meq/L Potassium 3.6 (3.5-5.1) meq/L Chloride 108 H (98-107) meq/L Carbon Dioxide 25.9 (21.0-32.0) meq/L BUN 25 H (7-18) mg/dL Creatinine 1.20 (0.60-1.30) mg/dL Calcium 8.3 L (8.5-10.1) mg/dL Intake and Output 09/07/18 09/07/18 09/07/18 06:59 14:59 22:59 Intake Total 1000 / 1000 Balance 1000 / 1000 Intake: IV 1000 / 1000 NS Inj 1,000 ML @ 70 mls/hr IV. 1000 / 1000 CONT .[id number] [facility] Rx#: [id number] Other: # Voids 2 Date of Last Bowel Movement 09/06/18 Weight 80.2 kg Weight On Admission 80.2 kg - Imaging and Cardiology Imaging: Impressions Carotid Doppler Study 09/06/18 00:00 CONCLUSION: Negative examination for a hemodynamically significant carotid stenosis. Huy Bullock MD FACR Head CT 09/06/18 06:38 CONCLUSION: Negative for acute process.. Head MRI 09/06/18 08:17 CONCLUSION: 1. Focal regions of acute infarction in the left frontal lobe mid to high convexities in a manner most consistent with embolic infarcts. 2. Senescent changes with mild periventricular ischemic white matter demyelination. Head MRA 09/06/18 08:17 CONCLUSION: 1. Unremarkable MRA examination of the [place]. Specifically, no evidence for large vessel occlusion. Assessment and Plan - Assessment (1) Embolic stroke Code(s): I63.9 - Cerebral infarction, unspecified Status: Acute (2) Numbness and tingling of right arm Code(s): R20.0 - Anesthesia of skin; R20.2 - Paresthesia of skin Status: Acute (3) Right arm weakness Code(s): R29.898 - Other symptoms and signs involving the musculoskeletal system Status: Acute (4) Hx of TIA (transient ischemic attack) and stroke Code(s): Z86.73 - Personal history of transient ischemic attack (TIA), and cerebral infarction without residual deficits Status: Chronic (5) Hyperlipidemia Code(s): E78.5 - Hyperlipidemia, unspecified Status: Chronic (6) Hypertension Code(s): I10 - Essential (primary) hypertension Status: Chronic - Plan 1) CVA with history of CVA/TIA Unknown cause Little risk factors Loop recorder placed as most likely cause is AFib Transmissions sent to my office 2) Cardiovascularly stable for discharge Will follow up in the office with me (5) Hyperlipidemia Qualifiers: Hyperlipidemia type: unspecified Qualified Code(s): E78.5 - Hyperlipidemia, unspecified (6) Hypertension Qualifiers: Hypertension type: essential hypertension Qualified Code(s): I10 - Essential (primary) hypertension
--- NOTE | 2018-09-07 17:33 | P.DS ---
Date of admission: 09/07/18 10:57 Primary care physician: No Primary Care Physician Attending physician on discharge: Bob Sneed Anticipated date of discharge: 09/07/18 Brief History from admission: This is a 73-year-old male with a history of hypertension, hyperlipidemia and previous TIAs. 5 years ago he had left-sided weakness and underwent SALVADOR which showed small defect in the septum and was placed on Plavix. He has been doing well until early this morning when he felt numb and tingling in the right forearm with weakness. Symptoms persisted prompting ER consultation. Denies fever, chills, headache, dizziness, visual changes, slurred speech, neck pain, chest pain and shortness of breath. Patient reports he had similar episode a month ago that lasted for 2 hours with complete resolution. Patient was given aspirin in the emergency room and underwent MRI which showed acute infarction in the left frontal lobe mid to high convexities most consistent with embolic infarcts. Discussed with neurology, patient will start Eliquis which patient agrees. Antiplatelets will be discontinued. SALVADOR with bubble study was also recommended and will be performed later today by cardiology. All other systems reviewed negative DS: Diagnosis - Discharge Diagnosis (1) Embolic stroke Status: Acute (2) Hyperlipidemia Status: Chronic (3) Hx of TIA (transient ischemic attack) and stroke Status: Chronic (4) Hypertension Status: Chronic DS: Medications - Discharge Medications Prescriptions: apixaban [Eliquis] 5 mg PO BID 30 Days #60 tab DS: Summary Hospital Course: 73-year-old male with a history of hypertension, hyperlipidemia and previous TIAs on Plavix. Presented to the emergency department with acute right upper extremity numbness and weakness. MRI which showed acute infarction in the left frontal lobe mid to high convexities most consistent with embolic infarcts. Patient also indicated possible history of PFO in the past during workup at hospital in [place]. Admitted for embolic CVA. Cardiology neurology consulted. Neuro workup was completed. Head MRA showed no significant findings. Echocardiogram was done, EF 60-65% no significant valvular abnormalities. Cardiology evaluated and recommended SALVADOR. SALVADOR showed no evidence of shunt. Because of the concern that cause of strokes was A. fib, he had a loop recorder placed on 09/06. His Plavix was stopped and he was started on Eliquis. He tolerated Eliquis well. He was continued on statins. PT, ST, and OT evaluated patient. Blood pressure was well controlled on beta-bobbi. Patient symptoms improved, he had good strength to right hand and only mild residual numbness to the dorsum of the hand. He was cleared for discharge by neurology and cardiology. Patient was discharged home in stable condition. - Time Spent with Patient Total time spent providing and/or coordinating discharge services: Less than 30 minutes - Quality: VTE Deep Vein Thrombosis/Pulmonary Embolism Present on Admission: No Exam Vital signs: Vital Signs 09/06/18 20:00 09/07/18 00:00 09/07/18 04:00 Temperature 97.6 F 97.6 F 97.9 F Pulse Rate 58 L 65 62 Respiratory Rate 16 16 16 Blood Pressure 136/62 127/67 119/57 L Pulse Oximetry 97 95 95 09/07/18 08:00 Temperature 98.2 F Pulse Rate 64 Respiratory Rate 16 Blood Pressure 122/56 L Pulse Oximetry 96 Intake & Output 09/06/18 09/07/18 09/07/18 18:59 06:59 18:59 Intake Total 50 / 50 1000 / 1000 Balance 50 / 50 1000 / 1000 Weight 80.2 kg Intake: IV 50 / 50 1000 / 1000 NS Inj 1,000 ML @ 70 mls/hr IV. 1000 / 1000 CONT .[id number] [facility] Rx#: [id number] Ancef 2 GM Premix Inj 2 gm In 50 / 50 50 ml @ 100 mls/hr IV.SIG [facility] Rx#:[id number] Other: # Voids 2 Date of Last Bowel Movement 09/06/18 Weight On Admission 80.2 kg Results Procedures completed during hospitalization: Loop recorder 09/06 SALVADOR 09/06 Labs on day of discharge: Labs from last 24 hours 09/06/18 09/06/18 20:41 17:54 POC Glucose 133 H 71 - Impressions ITS Impressions Carotid Doppler Study 09/06/18 00:00 CONCLUSION: Negative examination for a hemodynamically significant carotid stenosis. Huy Bullock MD FACR Head CT 09/06/18 06:38 CONCLUSION: Negative for acute process.. Head MRI 09/06/18 08:17 CONCLUSION: 1. Focal regions of acute infarction in the left frontal lobe mid to high convexities in a manner most consistent with embolic infarcts. 2. Senescent changes with mild periventricular ischemic white matter demyelination. Head MRA 09/06/18 08:17 CONCLUSION: 1. Unremarkable MRA examination of the [place]. Specifically, no evidence for large vessel occlusion. Discharge Plan - Discharge Disposition Patient Disposition: 01 Discharge Home - Discharge Condition Condition: Stable - Discharge Order Discharge Orders: Discharge Order (Routine); Ordered 09/07/18 Ordered By: Lizzeth Gregory - Discharge Details Anticipated Discharge Date: 09/07/18 Discharge Comment: ok to dc, ok per cardiology - Physicians Team Primary Care Provider: Primary Care Albina Hinojosa Attending Provider: Bob Sneed Other Providers: Roula Mathew MD ; Hussain Olivo DO ; Leeann Mcclellan MD
== END 2018-09-07 12:02 | disposition home or self-care (01) ==
LOC: PHED 06:08 → PHEDA 06:08 → PH3 09:15 → N05 14:41 → N06 18:38
PROVIDERS: ADMIT Family Medicine; ATTEND Family Medicine